=== PATIENT | female | born 1995 ===

== ENCOUNTER 2020-11-17 09:40 | Outpatient (CLI) | payer OTHER | END 2020-11-17 10:40 | disposition home or self-care (01) | LOC: PRENATAL 09:40 | PROVIDERS: ATTEND Obstetrics & Gynecology Maternal & Fetal Medicine | DX: O35.0XX1 Maternal care for (suspected) central nervous system malformation in fetus, fetus 1 (principal); O35.3XX1 Maternal care for (suspected) damage to fetus from viral disease in mother, fetus 1; O98.512 Other viral diseases complicating pregnancy, second trimester; Z36.89 Encounter for other specified antenatal screening; Z3A.23 23 weeks gestation of pregnancy ==

== ENCOUNTER 2021-01-19 08:49 | Outpatient (CLI) | payer OTHER ==
[2021-01-19] MEDS ORDERED: PRENATAL CAPLE1 EAC1 PO (13:09)
[2021-01-19] MEDS ORDERED: PEPCID AC20 MG PO (13:37)
[2021-01-20] MEDS ORDERED: ONDANSETRON HCL8 MG (08:00)
== END 2021-01-19 10:45 | disposition home or self-care (01) ==
LOC: PRENATAL 08:49
PROVIDERS: ATTEND Obstetrics & Gynecology Maternal & Fetal Medicine
DX: O26.843 Uterine size-date discrepancy, third trimester (principal); O36.8131 Decreased fetal movements, third trimester, fetus 1; O41.03X1 Oligohydramnios, third trimester, fetus 1; O35.0XX1 Maternal care for (suspected) central nervous system malformation in fetus, fetus 1; Z36.89 Encounter for other specified antenatal screening; Z3A.33 33 weeks gestation of pregnancy

== ENCOUNTER 2021-01-19 11:50 | Inpatient (IN) | payer OTHER ==
[~2021-01-19] VITALS: Ht 182.9 cm; Wt 1.8 kg
[2021-01-19] MEDS ORDERED: PRENATAL CAPLE1 EAC1 PO (13:09)
[2021-01-19] MEDS ORDERED: PEPCID AC20 MG PO (13:37)
[2021-01-20] MEDS ORDERED: ONDANSETRON HCL8 MG (08:00)
[2021-02-04] MEDS ORDERED: IBU800 MG PO (16:51)
[2021-02-04] MEDS ORDERED: SURFAK240 M1 PO (16:51)
== END 2021-02-04 17:28 | disposition home or self-care (01) | DRG 788 ==
LOC: LDR 11:50 → OB/GYN 11:50 → LDR 01-20 03:34 → OB/GYN 01-21 11:15
PROVIDERS: ADMIT Student in an Organized Health Care Education/Training Program; ATTEND Student in an Organized Health Care Education/Training Program
PROC: 4A1HXFZ Monitoring of Products of Conception, Cardiac Rhythm, External Approach (ICD-10-PCS; 2021-01-19)
PROC: BY4FZZZ Ultrasonography of Third Trimester, Single Fetus (ICD-10-PCS; 2021-01-23)
PROC: 10D00Z1 Extraction of Products of Conception, Low, Open Approach (ICD-10-PCS; principal; 2021-01-31)
PROC: 3E0P7VZ Introduction of Hormone into Female Reproductive, Via Natural or Artificial Opening (ICD-10-PCS; 2021-01-31)
DX: O61.0 Failed medical induction of labor (principal); O42.113 Preterm premature rupture of membranes, onset of labor more than 24 hours following rupture, third trimester; Z3A.32 32 weeks gestation of pregnancy; Z37.0 Single live birth